=== PATIENT | female | born 1980 ===

== ENCOUNTER → 2025-09-12 15:30 | Outpatient (CLI) | payer BC, SELFPAY ==
--- NOTE | 2025-09-12 15:35 | DI.RAD.S_ITS ---
PROCEDURE: XR LUMBAR SPINE 2-3V INDICATIONS: Evaluate for lumbar spondylosis TECHNIQUE: 3 views of the lumbar spine were acquired. COMPARISON: None. FINDINGS: Bones: 5 [id number] vertebrae are present. There is straightening of normal lumbar lordosis. No vertebral body compression fractures. Degenerative endplate changes are noted in lower lumbar spine at L4-5 and L5-S1 levels. Bilateral facet arthrosis at these levels also seen. No suspicious bony lesions. Soft tissues: Overlying bowel gas pattern is normal. No suspicious soft tissue calcifications. IMPRESSION: Mild degenerative disc disease in lower lumbar spine. No acute compression fracture or dislocation. Dictated by: Osvaldo Rogers M.D. on 09/12/2025 at 16:04 Approved by: Osvaldo Rogers M.D. on 09/12/2025 at 16:04
== END ==
PROVIDERS: PCP Family Medicine; Referring Provider Chiropractor; Visit Provider Chiropractor
DX: M51.16 Intervertebral disc disorders with radiculopathy, lumbar region (principal)
CPT/HCPCS: 72100